=== PATIENT | female | born 1995 | race Caucasian/White ===

== ENCOUNTER 2022-08-28 00:20 | Inpatient (IN) | payer OTHER ==
[~2022-08-28] VITALS: Ht 170.2 cm; Wt 82.3 kg
[2022-08-28] VITALS (45 sets, daily range): BP systolic 101–141; BP diastolic 55–82; PULSE 58–96; TEMP 97.9–98.8
--- NOTE | 2022-08-28 00:30 | NUR ---
G2L0. 39.4. Ambulatory to LDR 5 with spuose. Clean gown on. EFM and TOCO explained and applied. Pt states she has been leaking clear fluid since 2199. Denies feeling contractions or vagianl bleeding. Reports good movement. Plan of care explained. 0040: SVE 3-4/80/-2. Amniotrace positive. 0140: IV started and labs obtained. IVF started. 0420: Pt requesting an epidural. Chrsitiana COMMUNICATIONS ADVISOR notified. 0425: Pt sitting up for epidural placement. Difficutly tracing FHR due to maternal position. 0429: Single shot administered by Silverio COMMUNICATIONS ADVISOR. 0431: Test dose administered by Christiana COMMUNICATIONS ADVISOR. See anesthesia records. 0512: Ross catheter inserted.
[2022-08-28] MEDS ORDERED: PRENATAL TABLET PO (00:55)
[2022-08-28] MEDS ORDERED: PROTONIX20 MG PO (00:56)
[2022-08-28 02:11] LABS: BASO % 0.3 % (0.0-2.0); EOS # 0.1 K/mm3 (0.0-0.7); EOS % 0.5 % (0.0-4.0); GRAN # 9.6 K/mm3 (1.4-6.5); GRAN % 76.3 % (42.2-75.2); LYMPH # 1.5 K/mm3 (1.2-3.4); LYMPH % 12.1 % (20.0-51.0); MEAN CELL VOLUME 88 fl (80.0-100.0); MEAN CORPUSCULAR HEMOGLOBIN 29 pg (27-31); MEAN CORPUSCULAR HGB CONC 33 g/dl (33.0-37.0); MEAN PLATELET VOLUME 10.3 fl (7.4-10.4); MONO # 1.3 K/mm3 (0.1-0.6); MONO % 10.2 % (1.7-9.3); PLATELET COUNT 183 K/mm3 (130-400); RED BLOOD COUNT 4.08 M/mm3 (4.10-5.30); REDCELL DISTRIBUTION WIDTH-CV 12.5 % (11.5-14.5)
--- NOTE | 2022-08-28 08:50 | NUR ---
AT BEDSIDE. SVE /0. PT PLACED IN SY POSITION PER PHYSICIAN REQUEST. PER VORB, RECHECK IN 1 HOUR AND INFORM OF ANY CHANGES.
--- NOTE | 2022-08-28 12:30 | NUR ---
1020: PT COMPLETE/0. SEE PHYSICIAN NOTIFICATION. ALL APPROPRIATE STAFF NOTIFIED. PATIENT BEGINS PUSHING AT THIS TIME. 1230: OF VIABLE FEMALE PER . PLACED ON MATERNAL ABDOMEN, CORD CLAMPEDX2 AND CUT BY FOB. CARE OF INFANT ASSUMED BY SHYAM NORRIS. 1246: OF PLACENTA AT THIS TIME PER . PITOCIN BOLUS INFUSING PER PROTOCOL. MATERNAL VSS. PLACENTA SENT TO PATHOLOGY FOR BILOBE VS ACCESSORY LOBE PER . INCREASED LOCHIA AT THIS TIME. BEGINS REPAIR OF SECOND DEGREE AND RIGHT LABIAL LACERATION. IM METHERGINE ORDERED AT THIS TIME. 1250: IM METHERGINE ADMINISTERED IN LEFT THIGH. FUDUS FIRM AT UMBILICUS. LOCHIA MODERATE AT THIS TIME. MATERNAL VSS REMAIN STABLE. 1300: FUNDUS FIRM AT UMBILICUS, LOCHIA SCANT. MATERNAL VSS.
--- NOTE | 2022-08-28 15:45 | NUR ---
PT UP TO THE BATHROOM VIA [employer]ANNA [employer]. PT DENIES DIZZINESS OR LIGHTHEADEDNESS. AFTER PERINEUM CLEANED, PT CHANGED INTO GOWN AND TRANSFERED VIA ZHANNA STEADY TO ROOM 215. PT DENIES PAIN. NO OTHER CONCERNS.
[2022-08-29] VITALS: BP 116/77; PULSE 82; TEMP 97.9
[2022-08-29] MEDS ORDERED: IBU800 M1 PO (08:24)
[2022-08-29 09:00] VITALS: BP 102/68; PULSE 70; TEMP 97.4
--- NOTE | 2022-08-29 09:58 | NUR ---
Initial visit; Parents thanked Proof Inspector for offering congratulations and God's blessings for the of their daughter. Proof Inspector thanked family for choosing our hospital.
[2022-08-29 16:48] VITALS: BP 120/84; PULSE 68; TEMP 97.3
--- NOTE | 2022-08-29 18:30 | NUR ---
This nurse received report from Macrina Dubose RN. Pt would like to watch educational videos when pt spouse arrives, certificate given to stapler coil unit, pt placenta sent to pathology. 1830: This nurse at pt bedside for pt introduction and POC discussion. Questions, concerns, and needs encouraged. Pt verbalized understanding and agreement of POC with "no" questions, concerns, or needs.
[2022-08-29 19:30] VITALS: BP 119/76; PULSE 76; TEMP 97.9
--- NOTE | 2022-08-29 19:30 | NUR ---
Pt holding and cuddling with baby during this nurse hourly rounding.
--- NOTE | 2022-08-29 22:52 | NUR ---
1930: Pt cuddling with pt baby during this nurse hourly rounding. 2029: Pt holding pt baby while visiting with family via video chat during this nurse hourly round. 2229: Pt stated "Can you look at her right eye? I have been wiping it with a warm wash cloth because it looks gunky." This nurse endorsed pt needs.
[2022-08-29 23:30] VITALS: BP 116/71; PULSE 65; TEMP 97.6
--- NOTE | 2022-08-29 23:30 | NUR ---
Pt turning in for the day during this nurse hourly round.
[2022-08-30 03:30] VITALS: BP 110/74; PULSE 82; TEMP 98.1
--- NOTE | 2022-08-30 05:03 | NUR ---
0130: Pt attempting to breastfeed during this nurse hourly rounding. 0330: Pt rouses awake for VS obtainment.
[2022-08-30 09:35] VITALS: BP 120/75; PULSE 68; TEMP 98
== END 2022-08-30 11:50 | disposition home or self-care (01) | DRG 807 ==
LOC: LDRO 00:20 → LDR 01:21 → OB 16:25
PROVIDERS: ADMIT Obstetrics & Gynecology
PROC: 10E0XZZ Delivery of Products of Conception, External Approach (ICD-10-PCS; principal; 2022-08-28)
PROC: 0KQM0ZZ Repair Perineum Muscle, Open Approach (ICD-10-PCS; 2022-08-28)
PROC: 0UQMXZZ Repair Vulva, External Approach (ICD-10-PCS; 2022-08-28)
DX: O99.344 Other mental disorders complicating childbirth (principal); Z37.0 Single live birth; Z3A.39 39 weeks gestation of pregnancy; F90.9 Attention-deficit hyperactivity disorder, unspecified type; Z67.91 Unspecified blood type, Rh negative; J45.909 Unspecified asthma, uncomplicated; O99.52 Diseases of the respiratory system complicating childbirth; K21.9 Gastro-esophageal reflux disease without esophagitis; O99.62 Diseases of the digestive system complicating childbirth; O70.1 Second degree perineal laceration during delivery; O75.89 Other specified complications of labor and delivery; O76 Abnormality in fetal heart rate and rhythm complicating labor and delivery; L30.9 Dermatitis, unspecified; O99.72 Diseases of the skin and subcutaneous tissue complicating childbirth
CPT/HCPCS: J2210; J2405; J2795; J7120

== ENCOUNTER 2023-09-05 00:31 | Inpatient (IN) | payer OTHER ==
[~2023-09-05] VITALS: Ht 162.6 cm; Wt 83.2 kg
[2023-09-05] VITALS (16 sets, daily range): BP systolic 95–138; BP diastolic 57–85; PULSE 74–108; TEMP 97.7–99.2
[~2023-09-05 00:31] MED LIST: IBU800 M1 PO; PRENATAL TABLET PO; PROTONIX20 MG PO
--- NOTE | 2023-09-05 00:35 | NUR ---
G3L1 at 38 weeks and 6 days arrives to unit with complaint of contractions. Pt has not been timing them but appears to be very uncomfortable. Pt reports good movement and denies vaginal bleeding. Unable to palpate membranes on exam but patient denies any leakage of fluid. Pt denies problems this . Pt oriented to room, clean gown on, call light within reach, bed in low and locked position. US and toco explained and applied. Admission assessment started. Vitals obtained. SVE 7/90/0. Pt requesting epidural as soon as possible.
--- NOTE | 2023-09-05 00:55 | NUR ---
18G IV started in left hand with 1 attempt. Admission labs obtained off IV start. Lactated ringers infusing to gravity. Consents reviewed and signed with patient and spouse. Esteban Daniels CRNA notified for epidural.
[2023-09-05] MEDS ORDERED: ROPivacaine PF 0.2% 200 ML IV ONE (00:59)
[2023-09-05] MEDS ORDERED: LR & Oxytocin 500 ML IV SCH (01:00)
[2023-09-05] MEDS ORDERED: LR 1,000 ML IV SCH (01:00)
--- NOTE | 2023-09-05 01:00 | NUR ---
0100 - MARYURI Collins at bedside. Pt repositioned to sitting on edge of bed. Epidural procedure, risks, and benefits reviewed with patient, verbalized understanding. 0108 - Difficulty tracing FHR due to maternal positioning. Tracing maternal HR confirmed by palpation. 0110 - Test dose by Esteban Daniles CRNA. Pt denies any adverse reactions. 0115 - Repositioned to left lateral with pillow support. Safety precautions reviewed. Call light within reach. See anesthesia record.
[2023-09-05 01:08] LABS: BASO % 0.2 % (0.0-2.0); EOS % 0.2 % (0.0-4.0); GRAN # 9.2 K/mm3 (1.4-6.5); GRAN % 78.1 % (42.2-75.2); HEMATOCRIT 37.6 % (37.0-47.0); HEMOGLOBIN 11.8 g/dl (12.5-16.0); LYMPH # 1.6 K/mm3 (1.2-3.4); LYMPH % 13.5 % (20.0-51.0); MEAN CELL VOLUME 85 fl (80.0-100.0); MEAN CORPUSCULAR HEMOGLOBIN 27 pg (27-31); MEAN CORPUSCULAR HGB CONC 31 g/dl (33.0-37.0); MEAN PLATELET VOLUME 9.4 fl (7.4-10.4); MONO # 0.9 K/mm3 (0.1-0.6); MONO % 7.2 % (1.7-9.3); PLATELET COUNT 222 K/mm3 (130-400); RED BLOOD COUNT 4.45 M/mm3 (4.10-5.30)
--- NOTE | 2023-09-05 01:20 | NUR ---
Pt called out stating she was feeling much more pressure. SVE complete/+2, Dr. Daniel notified needed at bedside for delivery.
[2023-09-05] MEDS ORDERED: diphenhydrAMINE 50 MG/ML 1 ML VIAL IV PRN (01:45)
[2023-09-05] MEDS ORDERED: Naloxone 0.4 MG/ML VIAL IV PRN ×2 (01:45→04:15)
[2023-09-05] MEDS ORDERED: ePHEDrine 50 MG/10 ML VIAL IV PRN (01:45)
[2023-09-05] MEDS ORDERED: diphenhydrAMINE 25 MG CAP PO PRN (01:45)
[2023-09-05] MEDS ORDERED: Ondansetron 4 MG/2 ML VIAL IV PRN (01:45)
--- NOTE | 2023-09-05 01:48 | NUR ---
0145 - Pt positioned into footplates. Educated on pushing techniques and positioning verbalized understandind. Dr. Daniel to bedside and gowned and gloved. 0146 - Initial push at this time. Pushing well with contractions. Nursery RN Kusum Navarro at bedside. 0148 - Spontaneous delivery of viable boy. placed to mother's abdomen, care of infant assumed to SHYAM Crockett. Cord clamped x 2 and cut by FOB. Cord blood obtained. 0152 - Spontaneous delivery of placenta. Fundal massage by Dr. Daniel, moderate amount of bleeding noted. 1st degree perineal laceration repaired by Dr. Daniel. Pitocin started at 333mu/min. 0155 - Small amount of clots out. Verbal orders to give methergine IM, see MAR. 0157 - Curretage used by Dr. Daniel, pt tolerating well. 0200 - Bleeding minimal and fundus firm and down 1 from umbilicus. Pericare provided. Ice pack to perinum, new chux beneath patient. Pt repositioned in bed for comfort. recovery started. See physician delivery note.
[2023-09-05] MEDS ORDERED: Methylergonovine 0.2 MG/ML 1 ML AMPUL IM ONE (02:00)
[2023-09-05] MEDS ORDERED: Loratadine 10 MG TAB PO PRN (02:30)
[2023-09-05] MEDS ORDERED: Magnes Hydrox (MOM) 80 MG/ML 30 ML CUP PO PRN (02:30)
[2023-09-05] MEDS ORDERED: Acetaminophen 500 MG TAB PO SCH (04:15)
[2023-09-05] MEDS ORDERED: Phenylephrine/Mineral Oil/Petrolatum 57 GM TUBE RC PRN (04:15)
[2023-09-05] MEDS ORDERED: Mag/Al Hydrox/Simeth Susp 30 ML CUP PO PRN (04:15)
[2023-09-05] MEDS ORDERED: Ibuprofen 800 MG TAB PO SCH ×2 (04:15→19:30)
[2023-09-05] MEDS ORDERED: oxyCODONE 5 MG TAB PO PRN (04:15)
[2023-09-05] MEDS ORDERED: Witch Hazel 50% Pads Bulk TUB TP PRN (04:15)
[2023-09-05] MEDS ORDERED: Measles/Mumps/Rubella Virus Vaccine Live w Diluent 0.5 ML VIAL SQ SCH (04:15)
--- NOTE | 2023-09-05 05:00 | NUR ---
Pt able to lift and hold left leg off of bed for 5 seconds but is unable to lift and hold right leg. Pt able to position self to sitting on edge of bed. Epidural catheter removed, pt tolerated well. Tip smooth, blue, and intact. Pt transferred to bathroom by Verena Romero. Pt able to void 700mL clear urine out. Pericare education provided, verbalized understanding. Clean gown on. Mesh panties and peripad applied. Pt transferred to room 218 with belongings in stable condition.
[2023-09-05] MEDS ORDERED: Sennosides/Docusate 8.6-50 MG TAB PO SCH (08:00)
[2023-09-05] MEDS ORDERED: traZODone 50 MG TAB PO PRN (21:00)
[2023-09-06 01:30] VITALS: BP 110/57; PULSE 76; TEMP 98.1
[2023-09-06 08:30] VITALS: BP 110/71; PULSE 68; TEMP 97.6
[2023-09-06] MEDS ORDERED: TYLENOL 500MG500 MG PO (08:59)
[2023-09-06] MEDS ORDERED: IBU800 M1 PO (09:00)
--- NOTE | 2023-09-06 13:00 | NUR ---
DISCHARGE TEACHING COMPLETED. EDUCATED TO CALL OFFICE ON THURSDAY AND MAKE 6 WEEK FOLLOW UP APPOINTMENT. PRESCRIPTIONS REVIEWED. QUESTIONS INVITED AND ANSWERED.
== END 2023-09-06 13:45 | disposition home or self-care (01) | DRG 768 ==
LOC: LDRO 00:31 → LDR 00:58 → OB 05:00
PROVIDERS: Obstetrics & Gynecology; ADMIT Student in an Organized Health Care Education/Training Program
PROC: 10E0XZZ Delivery of Products of Conception, External Approach (ICD-10-PCS; principal; 2023-09-05)
PROC: 0HQ9XZZ Repair Perineum Skin, External Approach (ICD-10-PCS; 2023-09-05)
PROC: 0UDB7ZZ Extraction of Endometrium, Via Natural or Artificial Opening (ICD-10-PCS; 2023-09-05)
DX: O99.62 Diseases of the digestive system complicating childbirth (principal); Z37.0 Single live birth; O69.81X0 Labor and delivery complicated by cord around neck, without compression, not applicable or unspecified; Z3A.38 38 weeks gestation of pregnancy; O75.89 Other specified complications of labor and delivery; O70.0 First degree perineal laceration during delivery; K21.9 Gastro-esophageal reflux disease without esophagitis; O99.344 Other mental disorders complicating childbirth; O99.02 Anemia complicating childbirth; F90.9 Attention-deficit hyperactivity disorder, unspecified type; O26.893 Other specified pregnancy related conditions, third trimester; Z67.11 Type A blood, Rh negative
CPT/HCPCS: J2210; J2590; J2795; J7120